=== PATIENT | male | born 1955 | race Native Hawaiian/Other Pacific Islander ===

== ENCOUNTER 2021-01-03 10:16 | Outpatient (CLI) | payer OTHER, BC | END 2021-01-03 21:29 | disposition home or self-care (01) | LOC: RAD 10:16 | PROVIDERS: ATTEND Nurse Practitioner Family | DX: R05 Cough (principal) | CPT/HCPCS: 87070; 87205 ==

== ENCOUNTER 2021-02-21 10:47 | Outpatient (CLI) | payer OTHER, BC ==
[2021-02-21 11:17] LABS: PLATELET COUNT 196 K/uL (142-355)
[2021-02-21 11:23] LABS: POTASSIUM 5.6 mmol/L (3.6-5.2); SODIUM 138 mmol/L (136-145)
== END 2021-02-21 22:13 | disposition home or self-care (01) ==
LOC: CT 10:47
PROVIDERS: ATTEND Nurse Practitioner Family
DX: R06.00 Dyspnea, unspecified (principal)
CPT/HCPCS: 36415; 80053; 82550; 82553; 83880; 84484; 85027; 85379; 93005; Q9963

== ENCOUNTER 2021-02-22 14:39 | Emergency (ER) | payer OTHER, BC ==
[~2021-02-22] VITALS: Ht 182.9 cm; Wt 181.4 kg
[2021-02-22 16:15] VITALS: BP 156/77; TEMP 99.1
== END 2021-02-22 16:15 | disposition home or self-care (01) ==
LOC: ED 14:39
DX: J98.01 Acute bronchospasm (principal); Z98.890 Other specified postprocedural states
CPT/HCPCS: 96374; 96375; 99284; J1940; J2930

== ENCOUNTER 2021-02-27 07:59 | Outpatient (CLI) | payer OTHER, BC ==
[~2021-02-27] VITALS: Ht 182.9 cm; Wt 186.9 kg
== END 2021-02-27 21:48 | disposition home or self-care (01) ==
LOC: INF 07:59
PROVIDERS: ATTEND Internal Medicine
DX: E87.70 Fluid overload, unspecified (principal)
CPT/HCPCS: 96374; 96376; J1940

== ENCOUNTER 2021-02-28 07:55 | Outpatient (CLI) | payer OTHER, BC ==
[~2021-02-28] VITALS: Ht 182.9 cm; Wt 186.9 kg
== END 2021-02-28 21:23 | disposition home or self-care (01) ==
LOC: INF 07:55
PROVIDERS: ATTEND Internal Medicine
DX: E87.79 Other fluid overload (principal)
CPT/HCPCS: 96374; 96376; J1940

== ENCOUNTER 2021-03-01 07:41 | Outpatient (CLI) | payer OTHER, BC ==
[~2021-03-01] VITALS: Ht 182.9 cm; Wt 186.9 kg
[2021-03-01 08:18] LABS: POTASSIUM 4.8 mmol/L (3.6-5.2)
== END 2021-03-01 19:05 | disposition home or self-care (01) ==
LOC: INF 07:41
PROVIDERS: ATTEND Internal Medicine
DX: E87.70 Fluid overload, unspecified (principal); I48.20 Chronic atrial fibrillation, unspecified; R06.02 Shortness of breath
CPT/HCPCS: 36415; 80048; 96374; J1940

== ENCOUNTER 2021-03-05 11:56 | Outpatient (CLI) | payer OTHER, BC ==
[2021-03-05 12:40] LABS: POTASSIUM 5.3 mmol/L (3.6-5.2)
== END 2021-03-05 19:35 | disposition home or self-care (01) ==
LOC: LABW 11:56
PROVIDERS: ATTEND Nurse Practitioner
DX: E87.70 Fluid overload, unspecified (principal); I10 Essential (primary) hypertension; E66.9 Obesity, unspecified; R06.02 Shortness of breath
CPT/HCPCS: 36415; 80048; 83880

== ENCOUNTER 2021-03-12 12:30 | Outpatient (CLI) | payer OTHER, BC ==
[2021-03-12 13:02] LABS: POTASSIUM 4.8 mmol/L (3.6-5.2)
== END 2021-03-12 21:04 | disposition home or self-care (01) ==
LOC: LABW 12:30
PROVIDERS: ATTEND Specialist
DX: E11.42 Type 2 diabetes mellitus with diabetic polyneuropathy (principal); R06.02 Shortness of breath; R35.8 Other polyuria
CPT/HCPCS: 36415; 80048

== ENCOUNTER 2021-03-30 13:13 | Inpatient (IN) | payer OTHER, BC ==
[~2021-03-30] VITALS: Ht 182.9 cm; Wt 182.8 kg
--- NOTE | 2021-03-30 14:00 | NUR ---
ATTEMPTED TO INSERT PERIPHERAL IV ON PATIENT. PATIENT JERKED ARM TWICE AND VEIN BLEW. PATIENT BEGAN STRIKING CHAIR WHEN HE WAS TOLD THEY BLEW. NURSE BILINGUAL TEACHER AIDE NOTIFIED. CHARGE NURSE INITIATED A 20 G PERIPHERAL IV INTO RIGHT AC. RESPIRATORY ATTEMPTED TO OBTAIN AN ABG. PATIENT LINWOOD ARM IF TO STRIKE RT. RT DID NOT ATTEMPT AGAIN. PATIENT REFUSED ABG TO BE OBTAINED.
[2021-03-30 15:04] LABS: PLATELET COUNT 107 K/uL (142-355)
[2021-03-30 15:20] LABS: SODIUM 143 mmol/L (136-145)
[2021-03-30 18:00] VITALS: BP 144/70; TEMP 98.1; Ht 182.9 cm; Wt 182.8 kg
[2021-03-30 20:00] VITALS: BP 146/91; TEMP 97.9
[2021-03-30] MEDS ORDERED: ELIQUIS5 MG PO (20:45)
[2021-03-30] MEDS ORDERED: COZAAR25 MG PO (20:45)
[2021-03-30] MEDS ORDERED: NEURONTIN 100M100 MG PO (20:46)
[2021-03-30 22:18] VITALS: BP 146/91; TEMP 97.9
[2021-03-31] VITALS: BP 120/74; TEMP 98
[2021-03-31 04:00] VITALS: BP 110/75; TEMP 97.8
[2021-03-31 04:44] LABS: PLATELET COUNT 95 K/uL (142-355)
[2021-03-31 04:59] LABS: POTASSIUM 4.6 mmol/L (3.6-5.2)
[2021-03-31 08:00] VITALS: BP 136/84; TEMP 97.4
--- NOTE | 2021-03-31 09:30 | NUR ---
PATIENT SITTING IN CHAIR WATCHING TV. PATIENT HAS 2OG TO LEFT AC SL. NAD NOTED. PATIENT WEARING O2 AT 2LPM. RESPIRATIONS EVEN AND NON-LABORED. PATIENT HAS NO COMPLAINTS AT THIS TIME.
[2021-03-31 12:00] VITALS: BP 143/85; TEMP 98.8
[2021-03-31 16:00] VITALS: BP 161/71; TEMP 98.4
--- NOTE | 2021-03-31 18:00 | NUR ---
PATIENT REQUESTING COFFEE. PATIENT RESPONDED TO PCT THAT HE HAS BEEN WAITING FOR HOURS FOR COFFEE. PATIENT HELD HIS HAND UP TO PCT'S FACE WHEN SHE RESPONDED THAT SHE WOULD BRING HIM SOME COFFEE. PATIENT PROVIDED WITH COFFEE BY WHITE SPOOLER. HE THANKED WHITE SPOOLER.
[2021-03-31 20:00] VITALS: BP 138/73; TEMP 99.2
[2021-04-01] VITALS: BP 143/72; TEMP 98.4
[2021-04-01 04:00] VITALS: BP 131/66; TEMP 98
[2021-04-01 08:00] VITALS: BP 120/78; TEMP 98.3
[2021-04-01 10:18] LABS: PLATELET COUNT 74 K/uL (142-355)
[2021-04-01 10:25] LABS: POTASSIUM 4.8 mmol/L (3.6-5.2)
[2021-04-01 12:00] VITALS: BP 136/71; TEMP 98.2
[2021-04-01 16:00] VITALS: BP 144/67; TEMP 98.1
[2021-04-01 20:00] VITALS: BP 153/90; TEMP 98.6
--- NOTE | 2021-04-01 20:03 | NUR ---
RESP AT BEDSIDE.
[2021-04-02] VITALS: BP 146/85; TEMP 98.8
[2021-04-02 04:00] VITALS: BP 146/60; TEMP 97.4
--- NOTE | 2021-04-02 04:22 | NUR ---
PT WAS ROUNDED ON. AWAKE AND TEXTING ON PHONE. PT IS TO BE DISCHARGED THIS AM TO RECEIVE ANTIBIOTIC THERAPY OUTPT. NO RESP DIATRESS NOTED. RESP PROVIDING AEROSOL TREATMENTS.
[2021-04-02 08:00] VITALS: BP 133/83; TEMP 97.6
[2021-04-02 12:00] VITALS: BP 151/86; TEMP 98.2
--- NOTE | 2021-04-02 12:00 | NUR ---
DC INSTRUCTIONS GIVEN AND EXPLAINED TO PT, PT VERBALIZED UNDERSTANDING, PT SCHEDULED FOR OUTPATIENT INFUSION BEGINNING TONIGHT AT 2130 AND CONTINUING IN THE AM AT 0830 IN INFUSION DEPARTMENT, CENTRAL SCHEDULING TO MAKE APPT FOR PT TO RECIEVE PICC LINE, ORDERS FOR INNER AND OUTER CANNULA ON TRACH TO BE CHANGED ON DAY 8 OF INFUSION, RESP NOTIFIED AND WILMER AND PT STATES THAT THE PATIENT CHANGES HIS OWN CANNULA, PT STATES "XAVIER BEEN CARING FOR IT MYSELF FOR 16 YEARS," INSTRUCTED PT TO WATCH TRACH FOR GROWTH OF THRUSH OR FUNGUS, PT HAS O2 AT HOME ALREADY SET UP THAT HE USES NEEDED, ORDERS GIVEN TO PT FOR REPEAT LABS AND LEVAQUIN 500MG PO DAILY FOR 14 DAYS CALLED INTO [facility], IV WRAPPED WITH PRECIOUS AND TO BE USED THIS PM FOR INFUSION
--- NOTE | 2021-04-02 12:30 | NUR ---
PT DC VIA ELECTRIC SCOOTER WITH DC ORDERS AND INSTRUCTIONS IN HAND WITH BELONGINGS, AND NOTED
== END 2021-04-02 12:30 | disposition home or self-care (01) | DRG 194 ==
LOC: MED/SURG 13:13
PROVIDERS: ADMIT Family Medicine; ATTEND Family Medicine
DX: J18.8 Other pneumonia, unspecified organism (principal); K50.90 Crohn's disease, unspecified, without complications; I48.91 Unspecified atrial fibrillation; I10 Essential (primary) hypertension
CPT/HCPCS: 36415; 80053; 82550; 82728; 83735; 83880; 84100; 84484; 85008; 85027; 86140; 87040; 87070; 87077; 87186; 87205; 87635; 93005; 94640; 94664; 94667; 94760; 96365; 96367; C1726; J0456; J0696; J2185; J2930; J3475; U0003

== ENCOUNTER → 2021-04-02 | Outpatient (CLI) | payer OTHER, BC ==
[~2021-04-02] VITALS: Ht 185.4 cm; Wt 182.8 kg
[~2021-04-02] MED LIST: COZAAR25 MG PO; ELIQUIS5 MG PO; NEURONTIN 100M100 MG PO
== END ==
LOC: INF 12:00
PROVIDERS: ATTEND Family Medicine
DX: J18.9 Pneumonia, unspecified organism (principal)
CPT/HCPCS: 96365; J2185

== ENCOUNTER 2021-04-03 08:13 | Outpatient (CLI) | payer OTHER, BC ==
[~2021-04-03] VITALS: Ht 185.4 cm; Wt 182.8 kg
== END 2021-04-03 21:18 | disposition home or self-care (01) ==
LOC: INF 08:13
PROVIDERS: ATTEND Family Medicine
DX: J18.8 Other pneumonia, unspecified organism (principal)
CPT/HCPCS: 96365; 96366; J2185

== ENCOUNTER 2021-04-04 08:11 | Outpatient (CLI) | payer OTHER, BC | END 2021-04-04 21:07 | disposition home or self-care (01) | LOC: INF 08:11 | PROVIDERS: ATTEND Family Medicine | DX: J18.9 Pneumonia, unspecified organism (principal) ==

== ENCOUNTER 2021-06-11 22:13 | Emergency (ER) | payer OTHER, BC ==
[~2021-06-11] VITALS: Ht 185.4 cm; Wt 181.4 kg
[2021-06-11 22:21] VITALS: TEMP 99.6
[2021-06-11 23:31] LABS: PLATELET COUNT 90 K/uL (142-355)
[2021-06-11 23:37] LABS: POTASSIUM 4.4 mmol/L (3.6-5.2)
[2021-06-12 00:02] LABS: PARTIAL THROMBOPLASTIN TIME 28.6 SECONDS (24.5-33.6)
[2021-06-12 02:58] VITALS: BP 149/118
== END 2021-06-12 02:58 | disposition short-term general hospital (02) ==
LOC: ED 22:13
PROVIDERS: Hospitalist
DX: M72.6 Necrotizing fasciitis (principal); Z11.52 Encounter for screening for COVID-19; W10.2XXA Fall (on)(from) incline, initial encounter; Y92.89 Other specified places as the place of occurrence of the external cause
CPT/HCPCS: 36415; 80048; 85007; 85027; 85610; 85730; 87635; 96365; 96366; 96372; 99285; J1200; J2270; J2405; J2543; J3370; U0003

== ENCOUNTER 2022-03-11 12:59 | Outpatient (CLI) | payer OTHER, BC | END 2022-03-11 19:12 | disposition home or self-care (01) | LOC: LAB 12:59 | PROVIDERS: ATTEND Nurse Practitioner Family | DX: R05.9 Cough, unspecified (principal); R09.3 Abnormal sputum; R50.9 Fever, unspecified | CPT/HCPCS: 87070; 87077; 87186; 87205 ==